=== PATIENT | female | born 1990 | race Caucasian/White ===

== ENCOUNTER → 2021-07-23 09:45 | Outpatient (BNVA) | payer OTHER, SELFPAY | PROVIDERS: Visit Provider Nurse Practitioner Family | DX: Z20.822 Contact with and (suspected) exposure to COVID-19 (principal); R68.89 Other general symptoms and signs | CPT/HCPCS: 87400; 87635 ==

== ENCOUNTER 2024-08-08 10:20 | Emergency (ER) | payer MEDICAID, SELFPAY ==
[2024-08-08 10:34] VITALS: BP 137/96; PULSE 78; RESP 18; TEMP 36.9; O2SAT 98; BMI 26.7
--- NOTE | 2024-08-08 11:18 | W.ED.URI ---
HPI - URI/Sore Throat General: Chief Complaint: Upper Respiratory Infection Stated Complaint: coughing Time Seen by Provider: 08/08/24 10:24 Source: patient Mode of arrival: ambulatory Limitations: no limitations History of Present Illness: Patient is a 34-year-old female who presents to the ED today along with all three of her children as well as her significant other all of which are being seen today for identical symptoms. She states the whole family have had cough, congestion, runny nose, shortness of breath, chills/body aches and some have had headache and vomiting. MD elicited complaint: cough, sore throat, rhinorrhea, nasal congestion and sinus pain Onset (ago): day(s) Consistency: constant Severity: mild Description of mucous: clear Able to tolerate fluids by mouth: Yes Exacerbating factors: nothing Relieving factors: nothing Context: sick contacts (all three kids and significant other) Associated symptoms: Reports chills, congestion, cough, headache(s), nasal congestion, nausea and vomiting; Deny abdominal pain, chest pain, diarrhea, ear or mastoid pain, fever(s) or sinus pain Treatments prior to arrival: none Related Data Home Medications Medication Instructions Recorded Confirmed No Known Home Medications 07/23/21 07/23/21 Allergies Allergy/AdvReac Type Severity Reaction Status Date / Time codeine Allergy Intermediate rash Verified 07/23/21 08:56 Review of Systems Const: Reports: chills and body aches; Denies: fever(s) Eyes: Denies: change in vision, blurry vision, photophobia, eye discomfort or eye discharge ENMT: Reports: throat pain, odynophagia, nasal discharge and nasal congestion; Denies: enlarged tonsils, swelling of lips/tongue, oral sores, ear or mastoid pain, ear discharge, post nasal drip or sinus pain Card: Denies: chest pain Resp: Reports: dyspnea, non-productive cough and chest congestion; Denies: productive cough, wheezing or hemoptysis GI: Reports: nausea and vomiting; Denies: abdominal pain or diarrhea Musc: Denies: neck pain Skin/Breast: Denies: rash Neuro: Reports: headache(s); Denies: numbness in extremities, weakness in extremities, sensory changes, difficulty walking, dizziness or confusion All/Imm: Denies: facial swelling or seasonal rhinorrhea PFSH ED PFSH: Social History Smoking and tobacco/nicotine status: current every day tobacco/nicotine user cigarettes Physical Exam Const: COMMON NORMALS: no acute distress, average body habitus, patient oriented x3, no limitations, alert and well nourished GENERAL APPEARANCE: cooperative HENMT: COMMON NORMALS: normocephalic, atraumatic, hearing grossly normal bilaterally, external ears normal, EAC's normal, TM's normal bilaterally, Normal external nose present, Normal nasal mucous membranes and turbinates present, moist oral mucous membranes and oropharynx normal HEAD & SCALP: normal to inspection, normocephalic and atraumatic FACE & SINUS: normal facial exam and sinuses nontender NOSE: Normal external nose present and Normal nasal mucous membranes and turbinates present EXTERNAL EAR: Yes external ears normal EXTERNAL AUDITORY CANAL: EAC's normal TYMPANIC MEMBRANE: TM's normal bilaterally MOUTH: Normal oral and palatal mucosa present and lip normal THROAT: posterior oropharynx normal, tonsils normal and uvula midline Eye: COMMON NORMALS: Equal, round and reactive pupils present, EOMs intact bilaterally and conjunctivae normal CONJUNCTIVA: Yes conjunctivae normal PUPIL: Yes Equal, round and reactive pupils present Neck/C-Spine: COMMON NORMALS: no lymphadenopathy Resp: COMMON NORMALS: normal respiratory effort and clear to auscultation bilaterally AUSCULTATION: clear to auscultation bilaterally Cardio: COMMON NORMALS: regular rate and regular rhythm RATE: regular rate RHYTHM: regular rhythm Extremity: GENERAL: Yes normal exam except as noted Neuro: TRELL COMA SCALE: document GCS findings [place] coma scale eye opening: Spontaneous [place] coma scale verbal response: Orientated [place] coma scale motor response: Obey commands [place] coma scale total score: 15 COMMON NORMALS: patient oriented x3 SENSORIUM/ORIENTATION: Yes alert Skin: COMMON NORMALS: no rashes or lesions noted GENERAL SKIN EXAM: no rashes or lesions noted Course Vital Signs: Vital signs: Vital Signs Temperature 98.5 F 08/08/24 10:34 Pulse Rate 78 08/08/24 10:34 Respiratory Rate 18 08/08/24 10:34 Blood Pressure 137/96 08/08/24 10:34 Pulse Oximetry 98 08/08/24 10:34 Oxygen Delivery Me thod Room Air 08/08/24 10:34 MDM - URI/Sore Throat Medical Decision Making The entire family of 5 is being seen here in the emergency department for identical symptoms. They all appear in no acute distress including patient. Her vital signs are stable. She will be swabbed for a respiratory panel. If positive for anything I would presume that the entire family has the same virus. We discussed conservative therapies. Return to ED precautions discussed. Differential Diagnosis Likely upper respiratory infection, croup, viral infection, bronchitis and influenza Medical Records I reviewed the patient's medical records. No radiology studies performed this visit Discharge Plan Discharge Patient Disposition: Home Clinical Impression: Viral URI with cough Condition: Stable Prescriptions: No Action No Known Home Medications Discharge Orders: Discharge ED (Routine); Ordered 08/08/24 Ordered By: Beba Oakes Patient Instructions: Upper Respiratory Infection (DC) Activity Restrictions/Additional Instructions: As we discussed, we will contact you later today with any positive results of your respiratory panel. Coding Level of Care Code ED Armature Bander for Anita Wang
[2024-08-08 13:11] LABS: Adenovirus Not Detected (NOT DETECT); Chlamydia Pneumoniae Not Detected (NOT DETECT); Coronavirus 229E,HKU1,NL63,OC4 Not Detected (NOT DETECT); Human Metapneumovirus Not Detected (NOT DETECT); Human Rhinovirus/Enterovirus Not Detected (NOT DETECT); Influenza A Detected (NOT DETECT); Influenza A H1 Not Detected (NOT DETECT); Influenza A H1-2009 Not Detected (NOT DETECT); Influenza A H3 Detected (NOT DETECT); Influenza B Not Detected (NOT DETECT); Mycoplasma Pneumoniae Not Detected (NOT DETECT); Parainfluenza Virus Type 1 Not Detected (NOT DETECT); Parainfluenza Virus Type 2 Not Detected (NOT DETECT); Parainfluenza Virus Type 3 Not Detected (NOT DETECT); Parainfluenza Virus Type 4 Not Detected (NOT DETECT); Respiratory Syncytial Virus A Not Detected (NOT DETECT); Respiratory Syncytial Virus B Not Detected (NOT DETECT); SARS-COV-2 Not Detected (NOT DETECT)
== END 2024-08-08 11:46 | disposition home or self-care (01) ==
PROVIDERS: Emergency Provider Physician Assistant
DX: J06.9 Acute upper respiratory infection, unspecified (principal); F17.210 Nicotine dependence, cigarettes, uncomplicated
CPT/HCPCS: 87486; 87581; 87633; 99283